=== PATIENT | male | born 1970 | race Caucasian/White ===

== ENCOUNTER 2017-02-17 00:26 | Emergency (ER) | payer BC ==
[2017-02-17] MEDS ORDERED: OXYCODONE-ACETAMINOPHEN 5-325 MG TABLET PO ONE (02:11)
[2017-02-17] MEDS ORDERED: PENICILLIN V POTASSIUM 500 MG TABLET PO ONE (02:11)
--- NOTE | 2017-02-17 02:14 | ER Document Report ---
ED Oral Problem - General Chief Complaint: Toothache Stated Complaint: TOOTHACHE Time Seen by Provider: 02/17/17 01:47 Mode of Arrival: Ambulatory Information source: Patient TRAVEL OUTSIDE OF THE [place] IN LAST 30 DAYS: No - HPI Patient complains to provider of: Toothache Onset: Last week Onset: Gradual Quality of pain: Achy Severity: Moderate Pain Level: 4 Context: Fractured tooth Associated symptoms: Dental decay Relieved by: Nothing Notes: Patient is a 46-year-old male who presents to the emergency room complaining of dental pain, he states he has a fractured tooth, there was swelling in the gingiva surrounding the tooth so he was pushing on it, this created increased inflammation, pain and bleeding, this is been going on since yesterday, he denies any purulent drainage, no fevers, has not been seen by a dentist recently - Related Data Allergies/Adverse Reactions: No Known Allergies Allergy (Verified 02/17/17 00:31) Past Medical History - General Information source: Patient - Social History Smoking Status: Never Smoker Drug Abuse: None Family History: Reviewed & Not Pertinent Patient has suicidal ideation: No Patient has homicidal ideation: No - Past Medical History Cardiac Medical History: Reports: Hx Hypertension Renal/ Medical History: Denies: Hx Peritoneal Dialysis Psychiatric Medical History: Reports: Hx Anxiety Surgical Hx: Negative - Immunizations Hx Diphtheria, Pertussis, Tetanus Vaccination: Yes Review of Systems - Review of Systems Constitutional: No symptoms reported EENT: See HPI Cardiovascular: No symptoms reported Respiratory: No symptoms reported Gastrointestinal: No symptoms reported Genitourinary: No symptoms reported Male Genitourinary: No symptoms reported Musculoskeletal: No symptoms reported Skin: No symptoms reported Hematologic/Lymphatic: No symptoms reported Neurological/Psychological: No symptoms reported -: Yes All other systems reviewed and negative Physical Exam - Vital signs Vitals: Temp Pulse Resp BP Pulse Ox 100.0 F 106 H 20 152/95 H 98 02/17/17 00:31 02/17/17 00:31 02/17/17 00:31 02/17/17 00:31 02/17/17 00:31 - Notes Notes: - General General appearance: Appears well, Alert In distress: None - HEENT Head: Normocephalic, Atraumatic Eyes: Normal Conjunctiva: Normal Extraocular movements intact: Yes Eyelashes: Normal Pupils: PERRL - Respiratory Respiratory status: No respiratory distress - Cardiovascular Rhythm: Regular - Abdominal Inspection: Normal - Back Back: Normal - Extremities General upper extremity: Normal inspection General lower extremity: Normal inspection - Neurological Neuro grossly intact: Yes Orientation: AAOx4 Beth Coma Scale Eye Opening: Spontaneous Beth Coma Scale Verbal: Oriented Constable Coma Scale Motor: Obeys Commands Constable Coma Scale Total: 15 - Psychological Associated symptoms: Normal affect, Normal mood - Skin Skin Temperature: Warm Skin Moisture: Dry Skin Color: Normal - HEENT Mouth/Lips: Caries, Dental fracture Teeth diagram: 1 - Dental caries 2 - Fractured tooth 3 - Erythema and swelling gingiva Course - Vital Signs Vital signs: Temp Pulse Resp BP Pulse Ox 98.4 F 68 16 139/89 H 96 02/17/17 02:26 02/17/17 02:26 02/17/17 02:26 02/17/17 02:02/17/17 02:26 Discharge - Discharge Clinical Impression: Dental infection Condition: Stable Disposition: HOME, SELF-CARE Instructions: [facility], Oral Narcotic Medication ([facility]), Penicillin V K ([facility]), Toothache ([facility]), Dentist, Dental Infection or Abscess ([facility] ) Additional Instructions: Follow up with your primary care provider and a dentist in one to 2 days. Return to the emergency room immediately if symptoms worsen or any additional concerns. Prescriptions: Oxycodone HCl/Acetaminophen [Percocet 5-325 mg Tablet] 1 - 2 tab PO ASDIR PRN # 15 tablet PRN Reason: Penicillin V Potassium [Penicillin Vk 500 mg Tablet] 500 mg PO TID #30 tablet
[2017-02-17 02:27] VITALS: BP 139/89
== END 2017-02-17 02:27 | disposition home or self-care (01) ==
LOC: ER 00:26
DX: K04.7 Periapical abscess without sinus (principal); K02.9 Dental caries, unspecified; K08.89 Other specified disorders of teeth and supporting structures; I10 Essential (primary) hypertension
CPT/HCPCS: 99282

== ENCOUNTER 2017-07-01 18:20 | Emergency (ER) | payer SELFPAY ==
--- NOTE | 2017-07-01 19:29 | ER Document Report ---
ED Hand/Wrist Injury - General Chief Complaint: Finger Injury Stated Complaint: FINGER PAIN Time Seen by Provider: 07/01/17 19:12 Notes: Patient is a 47-year-old male presents emergency department complaining of left right finger pain. He was working on his car when he hit his PIP joint with a hammer. He admits to instant pain and swelling. Otherwise he states his range of motion of the digit normal sensation. Otherwise healthy male TRAVEL OUTSIDE OF THE [place] IN LAST 30 DAYS: No - Related Data Allergies/Adverse Reactions: No Known Allergies Allergy (Verified 07/01/17 18:26) Past Medical History - Social History Smoking Status: Current Every Day Smoker Family History: Reviewed & Not Pertinent - Past Medical History Cardiac Medical History: Reports: Hx Hypertension Renal/ Medical History: Denies: Hx Peritoneal Dialysis Psychiatric Medical History: Reports: Hx Anxiety - Immunizations Hx Diphtheria, Pertussis, Tetanus Vaccination: Yes Review of Systems - Review of Systems Constitutional: No symptoms reported Musculoskeletal: See HPI Skin: No symptoms reported -: Yes All other systems reviewed and negative Physical Exam - Vital signs Vitals: Temp Pulse Resp BP Pulse Ox 99.5 F 112 H 18 197/112 H 97 07/01/17 18:26 07/01/17 18:26 07/01/17 18:26 07/01/17 18:26 07/01/17 18:26 - General General appearance: Appears well, Alert In distress: None - Cardiovascular Pulses: Normal: Radial Normal capillary refill: Yes - Extremities Forearm: Normal, Nontender - Need to talk to completely heal fine Wrist: Normal, Nontender Hand: Tender, Ecchymosis, Swelling. No: Deformity, Dislocation, Nail injury, Tendon deficit - Neurological Additional motor exam normals: Weakness - 2/2 pain. 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 Patient will be splinted and educated on follow-up with Rian Pacheco. Patient agrees with plan. - Vital Signs Vital signs: Temp Pulse Resp BP Pulse Ox 99.5 F 112 H 18 197/112 H 97 07/01/17 18:26 07/01/17 18:26 07/01/17 18:26 07/01/17 18:26 07/01/17 18:26 - Diagnostic Test Radiology reviewed: Image reviewed, Reports reviewed Discharge - Discharge Clinical Impression: Finger fracture Qualifiers: Encounter type: initial encounter Finger: middle finger Fracture type: closed Phalanx: proximal Fracture alignment: nondisplaced Laterality: left Qualified Code(s): S62.643A - Nondisplaced fracture of proximal phalanx of left middle finger, initial encounter for closed fracture Condition: Good Disposition: HOME, SELF-CARE Instructions: Fractured Finger ([facility]) Additional Instructions: [facility] Address: [facility] [address], [place] [address] Prescriptions: Oxycodone HCl/Acetaminophen [Percocet 5-325 mg Tablet] 1 - 2 tab PO Q4H PRN #6 tablet PRN Reason: Forms: Return to Work Referrals: BRODIE STRINGER DO [ACTIVE STAFF] - Follow up in 3-5 days
--- NOTE | 2017-07-01 19:41 | RADIOLOGY REPORT (SQ) ---
EXAM DESCRIPTION: FINGER LEFT COMPLETED DATE/TIME: 07/01/2017 7:14 pm REASON FOR STUDY: third digit, hit with hammer, pain COMPARISON: None. NUMBER OF VIEWS: Three views. TECHNIQUE: AP, lateral, and oblique images acquired of the left third finger. LIMITATIONS: None. FINDINGS: MINERALIZATION: Normal. BONES: 1 mm avulsion fracture on the dorsal-ulnar aspect of the articular margin of the middle phalan x of the left 3rd digit. No Dislocation. No worrisome bone lesions. SOFT TISSUES: Moderate soft tissue swelling. No foreign body. OTHER: No other significant finding. IMPRESSION: 1 mm avulsion fracture on the dorsal-ulnar aspect of the articular margin of the middle phalanx of the left 3rd digit. COMMENT: SITE OF TRAUMA/COMPLAINT MARKED/STAMP COMPLETED: Yes no TECHNICAL DOCUMENTATION: JOB ID: [id number] [employer]- All Rights Reserved
[2017-07-01] MEDS ORDERED: OXYCODONE-ACETAMINOPHEN 5-325 MG TABLET PO ONE (19:45)
[2017-07-01 20:25] VITALS: BP 171/106
== END 2017-07-01 20:22 | disposition home or self-care (01) ==
LOC: ER 18:20
DX: S62.643A Nondisplaced fracture of proximal phalanx of left middle finger, initial encounter for closed fracture (principal); W27.8XXA Contact with other nonpowered hand tool, initial encounter; Y93.89 Activity, other specified; Y92.009 Unspecified place in unspecified non-institutional (private) residence as the place of occurrence of the external cause; F17.200 Nicotine dependence, unspecified, uncomplicated; I10 Essential (primary) hypertension
CPT/HCPCS: 99283